=== PATIENT | male | born 1985 ===

== ENCOUNTER 2020-11-08 22:01 | Outpatient (REF) | payer OTHER, SELFPAY ==
[2020-11-08 22:39] LABS: Cholesterol 263 mg/dL (<200); HDL Cholesterol 23 mg/dL (40-60); Triglyceride 488 mg/dL (<150)
[2020-11-08 22:55] LABS: LDL CHOLESTEROL 182 mg/dL (<100)
== END 2020-11-08 22:02 | disposition home or self-care (01) ==
LOC: NCHCN 22:01
PROVIDERS: PCP Nurse Practitioner Community Health; Visit Provider Nurse Practitioner Community Health
DX: Z13.220 Encounter for screening for lipoid disorders (principal)
CPT/HCPCS: 80061; 83721; 83880; 85025

== ENCOUNTER 2020-11-15 11:47 | Outpatient (REF) | payer OTHER, SELFPAY ==
[2020-11-15 14:26] LABS: Hemoglobin A1C 5.7 % (<5.7)
[2020-11-15 14:37] LABS: Calculated LDL 196 mg/dL (<100); Cholesterol 269 mg/dL (<200); HDL Cholesterol 25 mg/dL (40-60); Triglyceride 240 mg/dL (<150)
== END 2020-11-15 11:48 | disposition home or self-care (01) ==
LOC: NCHCN 11:47
PROVIDERS: PCP Nurse Practitioner Community Health; Visit Provider Nurse Practitioner Community Health
DX: E78.1 Pure hyperglyceridemia (principal)
CPT/HCPCS: 80061; 83036

== ENCOUNTER 2020-11-29 17:59 | Outpatient (REF) | payer OTHER, SELFPAY ==
[2020-11-29 21:19] LABS: Albumin 4.3 g/dL (3.4-5.0); Alkaline Phosphatase 53 U/L (46-116); Anion Gap 8.5 mmol/L (3-11); BUN 16 mg/dL (7-18); Bilirubin, Total 0.4 mg/dL (0.2-1.0); CO2 29.5 mmol/L (21.0-32.0); CREATININE 0.9 mg/dL (0.70-1.30); Calcium 8.7 mg/dL (8.5-10.1); Chloride 107 mmol/L (98-107); Glucose 109 mg/dL (74-106); Potassium 4.2 mmol/L (3.5-5.1); Sodium 145 mmol/L (136-145); Total Protein 7.4 g/dL (6.4-8.2)
[2020-11-29 21:40] LABS: ALT 49 U/L (16-63); AST 34 U/L (15-37)
== END 2020-11-29 18:00 | disposition home or self-care (01) ==
LOC: NCHCN 17:59
PROVIDERS: PCP Nurse Practitioner Community Health; Visit Provider Nurse Practitioner Community Health
DX: R94.5 Abnormal results of liver function studies (principal); Z87.898 Personal history of other specified conditions
CPT/HCPCS: 80053